=== PATIENT | male | born 1930 ===

== ENCOUNTER → 2017-12-22 | Outpatient (CLI) | payer OTHER | LOC: SBRMNEURO 23:00 | PROVIDERS: ATTEND Physician Assistant Medical | DX: G47.33 Obstructive sleep apnea (adult) (pediatric) (principal); G47.61 Periodic limb movement disorder ==

== ENCOUNTER → 2019-04-14 | Outpatient (CLI) | payer OTHER | LOC: SUPIMAGING 14:30 | PROVIDERS: ATTEND Family Medicine | DX: M25.561 Pain in right knee (principal); M17.11 Unilateral primary osteoarthritis, right knee | CPT/HCPCS: 73562-PN ==